=== PATIENT | male | born 1980 | race Caucasian/White ===

== ENCOUNTER 2018-11-19 18:02 | Emergency (ER) | payer MEDICAID, OTHER ==
[~2018-11-19] VITALS: Ht 188 cm; Wt 89.7 kg
[2018-11-19 22:09] VITALS: BP 112/72
== END 2018-11-19 23:33 | disposition home or self-care (01) ==
LOC: ED 23:11
DX: F15.129 Other stimulant abuse with intoxication, unspecified (principal); F12.129 Cannabis abuse with intoxication, unspecified; F11.129 Opioid abuse with intoxication, unspecified; J44.9 Chronic obstructive pulmonary disease, unspecified; F17.200 Nicotine dependence, unspecified, uncomplicated; Z90.49 Acquired absence of other specified parts of digestive tract; V29.88XA Motorcycle rider (driver) (passenger) injured in other specified transport accidents, initial encounter; Y93.89 Activity, other specified; Y92.89 Other specified places as the place of occurrence of the external cause; Y99.8 Other external cause status
CPT/HCPCS: 36415; 71045; 72072; 72110; 72125; 74177; 80053; 80307; 81003; 85025; 99284; Q9967